=== PATIENT | female | born 1975 ===

== ENCOUNTER 2018-06-07 11:08 | Outpatient (CLI) | payer OTHER | END 2018-06-07 11:09 | disposition home or self-care (01) | LOC: SONOGRAMA 11:08 | DX: E04.2 Nontoxic multinodular goiter (principal) ==

== ENCOUNTER 2023-11-13 10:11 | Outpatient (CLI) | payer OTHER | END 2023-11-13 10:15 | disposition home or self-care (01) | LOC: SONOGRAMA 10:11 | PROVIDERS: ATTEND Pathology Anatomic Pathology & Clinical Pathology | DX: D34 Benign neoplasm of thyroid gland (principal); E07.89 Other specified disorders of thyroid; E04.2 Nontoxic multinodular goiter ==